=== PATIENT | male | born 1960 | race Caucasian/White ===

== ENCOUNTER 2020-10-02 08:06 | Emergency (ER) | payer OTHER ==
[2020-10-02] MEDS ORDERED: Sodium Chloride 0.9% 1,000 ML IV ONE (08:24)
[2020-10-02] MEDS ORDERED: Iopamidol 755 Mg/ML 100 ML Bottle IV ONE (09:00)
[2020-10-02] MEDS ORDERED: HYDROmorphone 1 MG/ML Syringe IVPUSH ONE (09:02)
[2020-10-02] MEDS ORDERED: Ketorolac 30 MG/ML SDV IM ONE (09:03)
[2020-10-02 09:37] LABS: ANION GAP 12.4 mmol/L (5-15); CHLORIDE,CL 99 mmol/L (98-107); SODIUM,NA 134 mmol/L (136-145)
[2020-10-02 09:41] VITALS: BP 114/73; PULSE 85
[2020-10-02] MEDS: Iopamidol 755 Mg/ML 100 ML Bottle IV ONE ×2 (09:45→11:45)
[2020-10-02] MEDS ORDERED: Sodium Chloride 0.9% 50 ML IV SCH (10:00)
--- NOTE | 2020-10-02 10:19 | EDM.PDOC ---
ED HPI GENERAL MEDICAL PROBLEM - General Chief Complaint: Abdominal Pain Stated Complaint: abdominal pain Time Seen by Provider: 10/02/20 08:20 Source of Information: Reports: Patient, Family () History Limitations: Reports: No Limitations - History of Present Illness INITIAL COMMENTS - FREE TEXT/NARRATIVE: 60 yo to the emergency room accompanied with his with complaints of abdominal pain. Patient was seen earlier this week by his primary care provider for acute pancreatitis. His lab lipase was elevated at 524. He was given fluid resuscitation and sent home on Toradol and hydrocodone. He continued to describe bloating or gaseous sensations. He is had some mild nausea no vomiting. His appetite has been poor. No fever or chills. Known diarrhea or constipation no symptoms no blood in his stool or urine. He does drink alcohol but he denies any excessive use. He last have alcohol this past weekend at a [employer]. He describes his abdominal pain is more of a constant pain with waves of sharp discomfort. This tends to stay both in the upper quadrants of the right and left side. He denies significant belching. He has no chest pain, no shortness of breath complaints. Onset: Gradual Onset Date: 09/27/20 Duration: Day(s):, Recurring Location: Reports: Abdomen Quality: Reports: Sharp Severity: Moderate Improves with: Reports: Medication Worsens with: Reports: None Associated Symptoms: Reports: Nausea/Vomiting. 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) Bilateral Upper Abdominal Pain Score (Numeric/FACES): 7 - Related Data Allergies Allergy/AdvReac Type Severity Reaction Status Date / Time No Known Allergies Allergy Verified 01/13/16 20:04 Home Meds: Home Meds Sertraline [Zoloft] 50 mg PO BEDTIME 10/02/20 [History] atorvaSTATin [Lipitor] 40 mg PO BEDTIME 10/02/20 [History] Past Medical History - Past Health History Medical/Surgical History: Denies Medical/Surgical History HEENT History: Reports: None Cardiovascular History: Reports: High Cholesterol Respiratory History: Reports: None Gastrointestinal History: Reports: Pancreatitis Genitourinary History: Reports: None Musculoskeletal History: Reports: None Neurological History: Reports: None Psychiatric History: Reports: Depression Endocrine/Metabolic History: Reports: None Hematologic History: Reports: None Oncologic (Cancer) History: Reports: None Dermatologic History: Reports: None - Infectious Disease History Infectious Disease History: Reports: Chicken Pox, Measles - Past Surgical History Head Surgeries/Procedures: Reports: None Cardiovascular Surgical History: Reports: None GI Surgical History: Reports: Appendectomy Musculoskeletal Surgical History: Reports: Other (See Below) Other Musculoskeletal Surgeries/Procedures:: back surgery Social & Family History - Family History Family Medical History: No Pertinent Family History - Tobacco Use Tobacco Use Status *Q: Never Tobacco User - Caffeine Use Caffeine Use: Reports: Coffee - Alcohol Use Days Per Week of Alcohol Use: 1 Number of Drinks Per Day: 0 Total Drinks Per Week: 0 - Recreational Drug Use Recreational Drug Use: No ED ROS GENERAL - Review of Systems Review Of Systems: See Below Constitutional: Reports: Decreased Appetite. Denies: Weight Loss HEENT: Reports: No Symptoms Respiratory: Reports: No Symptoms Cardiovascular: Reports: No Symptoms Endocrine: Reports: No Symptoms GI/Abdominal: Reports: Abdominal Pain, Decreased Appetite, Nausea. Denies: Black Stool, Bloody Stool, Constipation, Diarrhea, Distension, Hematemesis, Muc ous in Stool, Stool Incontinence, Vomiting : Reports: No Symptoms Musculoskeletal: Reports: No Symptoms Skin: Reports: No Symptoms Neurological: Reports: No Symptoms Psychiatric: Reports: Depression Hematologic/Lymphatic: Reports: No Symptoms Immunologic: Reports: No Symptoms ED EXAM, GI/ABD - Physical Exam Exam: See Below Exam Limited By: No Limitations General Appearance: Alert, WD/WN, Mild Distress Eyes: Bilateral: EOMI Ears: Hearing Grossly Normal Nose: Normal Inspection Throat/Mouth: Normal Inspection, Normal Voice, No Airway Compromise Head: Atraumatic, Normocephalic Neck: Normal Inspection, Supple, Non-Tender, Full Range of Motion Respiratory/Chest: No Respiratory Distress, Lungs Clear, Normal Breath Sounds, No Accessory Muscle Use, Chest Non-Tender Cardiovascular: Normal Peripheral Pulses, Regular Rate, Rhythm, No JVD, No Murmur GI/Abdominal Exam: Normal Bowel Sounds, No Organomegaly, No Distention, No Abnormal Bruit, No Mass, Tender (Right upper quadrant) Back Exam: Normal Inspection Extremities: Normal Inspection Neurological: Alert, Oriented, CN II-XII Intact, Normal Cognition, Normal Gait, No Motor/Sensory Deficits Psychiatric: Normal Affect, Normal Mood Skin Exam: Warm, Dry, Intact, Normal Color, No Rash Lymphatic: No Adenopathy Course - Vital Signs Last Recorded V/S: Last Vital Signs Temp 97.6 F 10/02/20 09:39 Pulse 85 10/02/20 09:39 Resp 16 10/02/20 09:39 BP 114/73 10/02/20 09:39 Pulse Ox 98 10/02/20 09:39 - Orders/Labs/Meds Orders: Active Orders 24 hr Category Date Time Status CULTURE URINE [RM] Stat Lab 10/02/20 10:56 Ordered Labs: Laboratory Tests 10/02/20 10/02/20 10/02/20 Range/Units 08:30 08:55 08:55 WBC 10.24 H (5.00-10.00) 10^3/uL RBC 4.68 (4.50-6.00) 10^6/uL Hgb 13.7 (13.0-17.0) g/dL Hct 40.5 (40.0-52.0) % MCV 86.5 (82.0-92.0) fL MCH 29.3 (27.0-31.0) pg MCHC 33.8 (32.0-36.0) g/dL RDW 12.6 (11.5-14.5) % Plt Count 175 (150-400) 10^3/uL MPV 10.1 (7.4-10.4) fL Immature Gran % (Auto) 0.3 (0.0-5.0) % Neut % (Auto) 83.1 H (50.0-70.0) % Lymph % (Auto) 6.9 L (20.0-40.0) % [place] % (Auto) 8.1 H (2.0-8.0) % Eos % (Auto) 1.5 (1.0-3.0) % Baso % (Auto) 0.1 (0.0-1.0) % Neut # (Auto) 8.51 H (2.50-7.00) 10^3/uL Lymph # (Auto) 0.71 L (1.00-4.00) 10^3/uL [place] # (Auto) 0.83 H (0.10-0.80) 10^3/uL Eos # (Auto) 0.15 (0.10-0.30) 10^3/uL Baso # (Auto) 0.01 (0.00-0.10) 10^3/uL Immature Gran # (Auto) 0.03 (0.00-0.50) 10^3/uL Sodium 134 L (136-145) mmol/L Potassium 3.7 (3.5-5.1) mmol/L Chloride 99 (98-107) mmol/L Carbon Dioxide 26.3 (21.0-32.0) mmol/L Anion Gap 12.4 (5-15) mmol/L BUN 8 (7-18) mg/dL Creatinine 0.84 (0.51-1.17) mg/dL Est Cr Clr Drug Dosing 102.09 mL/min Estimated GFR (MDRD) > 60 mL/min Glucose 102 (70-140) mg/dL Calcium 8.7 (8.7-10.3) mg/dL Total Bilirubin 0.7 (0.2-1.0) mg/dL AST 17 (15-37) U/L ALT 27 (14-63) U/L Alkaline Phosphatase 57 (46-116) U/L Total Protein 6.6 (6.4-8.2) g/dL Albumin 3.22 L (3.40-5.00) g/dL Lipase 177 (73-393) U/L Specimen Type Urine Color (YELLOW) Urine Appearance (CLEAR) Urine pH (5.0-9.0) Ur Specific [place] (1.005-1.030) Urine Protein (NEGATIVE) mg/dL Urine Glucose (UA) (NEGATIVE) mg/dL Urine Ketones (NEGATIVE) mg/dL Urine Occult Blood (NEGATIVE) Urine Nitrite (NEGATIVE) Urine Bilirubin (NEGATIVE) Urine Urobilinogen (0.2-1.0) E.U./dL Ur Leukocyte Esterase (NEGATIVE) Urine RBC (0-5) /HPF Urine WBC (0-5) /HPF Ur Epithelial Cells /LPF Urine Bacteria (NONE TO FEW) /HPF 10/02/20 Range/Units 09:50 WBC (5.00-10.00) 10^3/uL RBC (4.50-6.00) 10^6/uL Hgb (13.0-17.0) g/dL Hct (40.0-52.0) % MCV (82.0-92.0) fL MCH (27.0-31.0) pg MCHC (32.0-36.0) g/dL RDW (11.5-14.5) % Plt Count (150-400) 10^3/uL MPV (7.4-10.4) fL Immature Gran % (Auto) (0.0-5.0) % Neut % (Auto) (50.0-70.0) % Lymph % (Auto) (20.0-40.0) % [place] % (Auto) (2.0-8.0) % Eos % (Auto) (1.0-3.0) % Baso % (Auto) (0.0-1.0) % Neut # (Auto) (2.50-7.00) 10^3/uL Lymph # (Auto) (1.00-4.00) 10^3/uL [place] # (Auto) (0.10-0.80) 10^3/uL Eos # (Auto) (0.10-0.30) 10^3/uL Baso # (Auto) (0.00-0.10) 10^3/uL Immature Gran # (Auto) (0.00-0.50) 10^3/uL Sodium (136-145) mmol/L Potassium (3.5-5.1) mmol/L Chloride (98-107) mmol/L Carbon Dioxide (21.0-32.0) mmol/L Anion Gap (5-15) mmol/L BUN (7-18) mg/dL Creatinine (0.51-1.17) mg/dL Est Cr Clr Drug Dosing mL/min Estimated GFR (MDRD) mL/min Glucose (70-140) mg/dL Calcium (8.7-10.3) mg/dL Total Bilirubin (0.2-1.0) mg/dL AST (15-37) U/L ALT (14-63) U/L Alkaline Phosphatase (46-116) U/L Total Protein (6.4-8.2) g/dL Albumin (3.40-5.00) g/dL Lipase (73-393) U/L Specimen Type Urinblad Urine Color Yellow (YELLOW) Urine Appearance Clear (CLEAR) Urine pH 7.0 (5.0-9.0) Ur Specific [place] 1.020 (1.005-1.030) Urine Protein Negative (NEGATIVE) mg/dL Urine Glucose (UA) Negative (NEGATIVE) mg/dL Urine Ketones 15 H (NEGATIVE) mg/dL Urine Occult Blood Trace-intact H (NEGATIVE) Urine Nitrite Negative (NEGATIVE) Urine Bilirubin Negative (NEGATIVE) Urine Urobilinogen 0.2 (0.2-1.0) E.U./dL Ur Leukocyte Esterase Negative (NEGATIVE) Urine RBC 5-10 H (0-5) /HPF Urine WBC 0-5 (0-5) /HPF Ur Epithelial Cells Rare /LPF Urine Bacteria Rare (NONE TO FEW) /HPF Meds: Medications Discontinued Medications Generic Name Dose Route Start Last Admin Trade Name Freq PRN Reason Stop Dose Admin Hydromorphone HCl 1 mg 10/02/20 09:02 10/02/20 09:09 Dilaudid IVPUSH 10/02/20 09:03 1 mg ONETIME ONE Administration Sodium Chloride 1,000 mls @ 999 mls/hr 10/02/20 08:24 10/02/20 08:33 Normal Saline IV 10/02/20 09:24 999 mls/hr .BOLUS ONE Administration Ketorolac Tromethamine 30 mg 10/02/20 09:03 10/02/20 09:07 Toradol IM 10/02/20 09:04 30 mg ONETIME ONE Administration - Radiology Interpretation Free Text/Narrative:: CT the abdomen pelvis with IV contrast Discussion: Edema within the surrounding the head and unit kit process of the pancreas compatible with the clinical history of acute pancreatitis. Follow-up imaging may be useful at some point to further exclude other underlying pathology. No evidence of necrosis, fluid collection or other evident complication. Small fat-containing bilateral inguinal hernias. Mild prostatomegaly. A subcentimeter hypodensity in the spleen is too small to further characterize. Permanent 13 mm hypodensity in the medial segment of the left lobe of the liver. Mild atelectasis or scarring in the imaged lung bases. Gallbladder, adrenal glands, kidneys, small bowel, and large bowel are unremarkable. The appendix is not seen, but there are no changes to suggest appendicitis. No free air or fluid. There are no changes are noted in the spine which are most prominent at L4-L5. Impression: 1. Acute interstitial pancreatitis without evident complication. 2. 13 mm indeterminate hepatic hypodensity. Abdominal MRI with and without contrast agent may be useful in 8 to 12 weeks to further evaluate the liver lesion and exclude other underlying pancreatic pathology. CT Results Date: 10/02/20 CT Results Time: 10:20 - Re-Assessments/Exams Free Text/Narrative Re-Assessment/Exam: 10/02/20 11:15 Patient reports his pain is a 0-1/10. He reports that this is the best he has felt this week. He denies nausea. Given 1 L of IV fluid resuscitation of normal saline. Departure - Departure Time of Disposition: 11:03 Disposition: Home, Self-Care 01 Condition: Good Clinical Impression: Abdominal pain Qualifiers: Abdominal location: epigastric Qualified Code(s): R10.13 - Epigastric pain Pancreatitis Qualifiers: Chronicity: acute Pancreatitis type: unspecified pancreatitis type Acute pancreatitis complication: no infection or necrosis Qualified Code(s): K85.90 - Acute pancreatitis without necrosis or infection, unspecified - Discharge Information Instructions: Acute Pancreatitis, [id number], Pancreatitis Eating Plan Referrals: Grace Lorenzana PA-C [Primary Care Provider] - Forms: ED Department Discharge Additional Instructions: 1. Bowel rest. Light diet. 2. Encourage fluids, water hydration 3. May resume Rx meds as needed. 4. f/u With Primary care next week. Sepsis Event Note (ED) - Evaluation Sepsis Screening Result: No Definite Risk - Focused Exam Vital Signs: Vital Signs Temp Pulse Resp BP Pulse Ox 10/02/20 09:39 97.6 F 85 16 114/73 98 10/02/20 08:08 96.9 F 18 126/77 97 - Problem List Review Problem List Initiated/Reviewed/Updated: Yes - My Orders Last 24 Hours: My Active Orders 10/02/20 10:56 CULTURE URINE [RM] Stat - Assessment/Plan Last 24 Hours: My Active Orders 10/02/20 10:56 CULTURE URINE [RM] Stat Assessment:: 1. Epigastric abdominal pain 2. Recent history of acute pancreatitis 3. Hypodensity hepatic Plan: Patient feels significantly better. He rated his pain on presentation to the ER a 7 out of 10. His pain now is a 0 or 1 out of 10. He was given IV fluid resuscitation and pain medication. His CT scan showed evidence of edema within the surrounding the head of the uncinate process of the pancreas which is compatible to with his clinical history of acute pancreatitis. His lab results lipase are within normal limits today. There is a hypodensity seen within the liver measuring 13 mm and recommended further evaluation with an MRI in the near future. I have discussed this with the patient and his today. They have a follow-up appointment with Noemi Schwartz PA-C next week. They will keep their follow-up appointment and results can be reviewed from the ER visit here today. I recommend continuing with the oral fluid hydration and a a light to bland diet in the interim. He does have some hydrocodone and some Toradol which he may continue to use for any discomfort. Recommended trying either some Tums or Prilosec as he is keeping his diet light and is taking Toradol which may upset his stomach. I have encouraged him that if his pain returns in severity to come back to the emergency room. I discussed the possibility that he may need complete bowel rest with IV fluid resuscitation if his symptoms persist. They are in agreements with going home today and discharge orders and instructions were given with him. Also mention with the patient that he had some mild hematuria with a rare bacteria but no leukocyte esterase or nitrates seen. We will plan on culturing his urine and results should be known within [address] not place him on an antibiotic at this time and wait for results from his cultures urinalysis. Discharge instructions: 1. Bowel rest. Light diet. 2. Encourage fluids, water hydration 3. May resume Rx meds as needed. 4. f/u With Primary care next week.
--- NOTE | 2020-10-02 10:20 | CT ---
[id number] CT/CT Abdomen Pelvis W IV EXAM: ABDOMEN AND PELVIS CT WITH CONTRAST INDICATION: ABDOMEN PAIN, PANCREATITIS. COMPARISON: None. DISCUSSION: Edema within and surrounding the head and uncinate process of the pancreas compatible with the clinical history of acute pancreatitis. Follow-up imaging may be useful at some point to further exclude other underlying pathology. No evidence of necrosis, fluid collection or other evident complication. Small fat-containing bilateral inguinal hernias. Mild prostatomegaly. A subcentimeter hypodensity in the spleen is too small to further characterize. Indeterminate 13 mm hypodensity in the medial segment of the left lobe of liver. Mild atelectasis or scarring in the imaged lung bases. The gallbladder, adrenal glands, kidneys, small bowel, and large bowel are unremarkable. The appendix is not seen, but there are no changes to suggest appendicitis. No free air free fluid. Degenerative changes are noted in the spine which are most prominent at L4-L5. IMPRESSION: 1. Acute interstitial pancreatitis without CT evident complication. 2. 13 mm indeterminate hepatic hypodensity. Abdomen MRI with and without Eovist contrast agent may be useful in 8-12 weeks to further evaluate the liver lesion and exclude other underlying pancreatic pathology. Matthew Varghese MD 10/02/20 1019 Thank you for allowing us to participate in the care of your patient.
[2020-10-04] MEDS ORDERED: Sodium Chloride 0.9% 50 ML IV SCH (08:45)
[2020-10-15] MEDS ORDERED: Sodium Chloride 0.9% 50 ML IV SCH (13:30)
== END 2020-10-02 11:15 | disposition home or self-care (01) ==
LOC: KA.ED 08:06
DX: K85.90 Acute pancreatitis without necrosis or infection, unspecified (principal); E78.00 Pure hypercholesterolemia, unspecified; Z79.899 Other long term (current) drug therapy
CPT/HCPCS: 36415; 74177; 80053; 81001; 83690; 85025; 87086; 96372; 96374; 99284; 99284-25; J1170; J1885; J7030; Q9967

== ENCOUNTER 2021-09-28 17:17 | Emergency (ER) | payer BC, OTHER ==
[2021-09-28 17:27] VITALS: BP 144/100; PULSE 87
[2021-09-28] MEDS ORDERED: Diphtheria,Pertussis(Acell),Tetanus Vaccine 0.5 ML Syringe IM ONE (17:33)
[2021-09-28] MEDS ORDERED: Lidocaine 2% 20 ML MDV SUBCUT ONE (17:33)
[2021-09-28] MEDS ORDERED: Acetaminophen/HYDROcodone 325-5 MG Tab PO ONE (18:12)
[2021-09-28] MEDS ORDERED: Amoxicillin/Clavulanate K 875-125 MG Tab PO ONE (18:12)
== END 2021-09-28 18:35 | disposition home or self-care (01) ==
LOC: KA.ED 17:17
DX: S62.632A Displaced fracture of distal phalanx of right middle finger, initial encounter for closed fracture (principal); S68.112A Complete traumatic metacarpophalangeal amputation of right middle finger, initial encounter; E78.00 Pure hypercholesterolemia, unspecified; Z79.899 Other long term (current) drug therapy; Z23 Encounter for immunization; W23.0XXA Caught, crushed, jammed, or pinched between moving objects, initial encounter
CPT/HCPCS: 73140-F7; 90471; 90715; 99283; 99283-25; A9270-GY

== ENCOUNTER 2023-04-15 11:47 | Emergency (ER) | payer BC ==
[2023-04-15 11:54] VITALS: BP 131/87; PULSE 95
[2023-04-15] MEDS ORDERED: Lidocaine 1% with EPINEPHrine 1:100,000 10 ML MDV INJECT ONE (12:08)
[2023-04-15] MEDS: Bacitracin/Neomycin/Polymyxin B Oint 0.9 GM U/D Packet ONE ×2 (12:55→12:57)
[2023-04-15] MEDS ORDERED: Bacitracin/Neomycin/Polymyxin B Oint 0.9 GM U/D Packet TOP ONE (12:55)
== END 2023-04-15 13:05 | disposition home or self-care (01) ==
LOC: KA.ED 11:47
DX: S41.112A Laceration without foreign body of left upper arm, initial encounter (principal); E78.00 Pure hypercholesterolemia, unspecified; Z79.899 Other long term (current) drug therapy; W11.XXXA Fall on and from ladder, initial encounter
CPT/HCPCS: 12002; 99282; 99283; J3490

== ENCOUNTER 2025-05-09 12:52 | Emergency (ER) | payer BC ==
[2025-05-09 13:46] VITALS: PULSE 90
[2025-05-09] MEDS: Bacitracin/Neomycin/Polymyxin B Oint 0.9 GM U/D Packet TOP ONE (14:52)
[2025-05-09 15:02] VITALS: BP 112/70
== END 2025-05-09 14:57 | disposition home or self-care (01) ==
LOC: KA.ED 12:52
DX: S61.210A Laceration without foreign body of right index finger without damage to nail, initial encounter (principal); E78.00 Pure hypercholesterolemia, unspecified; Z90.49 Acquired absence of other specified parts of digestive tract; W26.0XXA Contact with knife, initial encounter
CPT/HCPCS: 12001; 99282; 99283; J2003